=== PATIENT | male | born 1940 | race Caucasian/White ===

== ENCOUNTER 2019-03-25 06:52 | Day surgery (SDC) | payer MEDICARE, OTHER ==
[~2019-03-25] VITALS: Ht 175.3 cm; Wt 74.5 kg
[2019-03-25] VITALS (13 sets, daily range): BP systolic 103–170; BP diastolic 59–91
[~2019-03-25 06:52] MED LIST: ASPI-611 PO; ATOR-2 PO; ATRNS; CALC-212 PO; CALC-234 PO; CLIN60GE5 TP; CLOP75TA15 PO; FENT-90 TD; LOSA50TA3 PO; LUBI24CA5 PO; META-25 PO; METR60GE2 TP; NEBI10TA2 PO; NORCO10T PO; OMEG1CAP2 PO; ROPI1TAB2 PO; SYN0.088T PO; TERB250T4 PO; TEST60CR TD; one a day vitamin PO
[2019-03-25] MEDS ORDERED: normal saline 1000ml 1,000 ML IV PRN (07:10)
[2019-03-25] MEDS ORDERED: BIOT5000 PO (07:31)
[2019-03-25] MEDS ORDERED: AZEL137S4 BOTHNARES (07:31)
[2019-03-25] MEDS ORDERED: LINA145C PO (07:31)
[2019-03-25] MEDS ORDERED: LISI-600 PO (07:31)
[2019-03-25] MEDS ORDERED: CAT1P SUBD (07:31)
[2019-03-25] MEDS ORDERED: RANI150C4 PO (07:31)
[2019-03-25] MEDS ORDERED: ACET-2615 PO (07:34)
[2019-03-25] MEDS ORDERED: normal saline 1000ml 1,000 ML IV SCH ×2 (08:01→10:20)
[2019-03-25] MEDS ORDERED: heparin 1,000 UNITS/NS 500ml 500 ML ICATH ONE (08:05)
[2019-03-25] MEDS ORDERED: midazolam 2 mg/2 ml injection IV PRN (08:05)
[2019-03-25] MEDS ORDERED: fentaNYL/PF 50MCG/1 ML 2ML syringe IV PRN (08:05)
[2019-03-25] MEDS ORDERED: iohexol 300mg/ml 100ml inj. ONE (08:09)
[2019-03-25] MEDS ORDERED: LIDOcaine 1%/PF 5ML 10 MG/ML VIAL ONE (08:09)
[2019-03-25 08:10] LABS: BASOPHILS % (AUTO) 0.3 % (0-1); EOSINOPHILS # (AUTO) 0.1 X10'3 (0-0.9); HEMATOCRIT 46.5 % (42.0-52.0); HEMOGLOBIN 15.1 g/dl (14.0-17.9); LYMPHOCYTES # (AUTO) 1.5 X10'3 (1.1-4.8); LYMPHOCYTES % (AUTO) 21.1 % (21-51); MEAN CORPUSCULAR HEMOGLOBIN 30.3 PG (27.0-31.0); MEAN CORPUSCULAR HGB CONC 32.5 g/dL (33.0-36.5); MEAN CORPUSCULAR VOLUME 93.1 FL (78-98); MEAN PLATELET VOLUME 8.8 FL (7.4-10.4); MONOCYTES # (AUTO) 0.7 X10'3 (0-0.9); MONOCYTES % (AUTO) 9.9 % (2-12); NEUTROPHILS % (AUTO) 67.7 % (42-75); PLATELET COUNT 160 X10'3 (140-440); RED BLOOD COUNT 4.99 X10'6 (4.70-6.10); RED CELL DISTRIBUTION WIDTH 14.8 % (11.5-14.5); WHITE BLOOD COUNT 7.3 X10'3 (4.5-11.0)
[2019-03-25 08:14] LABS: ALBUMIN 4.2 G/DL (3.4-5.0); ANION GAP 10 (8-16); BLOOD UREA NITROGEN 38 MG/DL (7-18); BUN/CREATININE RATIO 18.4 (5.4-32.0); CALCIUM 10.5 MG/DL (8.5-10.1); CHLORIDE 106 MMOL/L (99-107); CREATININE 2.07 MG/DL (0.60-1.10); GLUCOSE 91 MG/DL (70-104); POTASSIUM 5.1 MMOL/L (3.5-5.1); SODIUM 141 MMOL/L (135-145); TOTAL CARBON DIOXIDE 24.8 MMOL/L (24-32); eGFR 31 ML/MIN
[2019-03-25] MEDS ORDERED: fentaNYL/PF 50MCG/1 ML 2ML syringe ONE ×2 (08:14→09:40)
[2019-03-25] MEDS ORDERED: heparin 1,000 UNITS/NS 500ml 500 ML ONE (08:14)
[2019-03-25] MEDS ORDERED: midazolam 2 mg/2 ml injection ONE ×2 (08:14→09:40)
== END 2019-03-25 16:45 | disposition home or self-care (01) ==
LOC: SSTAY O 06:52
PROVIDERS: ATTEND Radiology Diagnostic Radiology
DX: I70.212 Atherosclerosis of native arteries of extremities with intermittent claudication, left leg (principal); I10 Essential (primary) hypertension; E78.5 Hyperlipidemia, unspecified; J44.9 Chronic obstructive pulmonary disease, unspecified; Z85.51 Personal history of malignant neoplasm of bladder; Z95.828 Presence of other vascular implants and grafts; Z95.820 Peripheral vascular angioplasty status with implants and grafts; Z79.82 Long term (current) use of aspirin; Z79.890 Hormone replacement therapy; Z79.02 Long term (current) use of antithrombotics/antiplatelets; Z79.891 Long term (current) use of opiate analgesic; Z79.899 Other long term (current) drug therapy; Z88.5 Allergy status to narcotic agent; Z88.8 Allergy status to other drugs, medicaments and biological substances; Z87.891 Personal history of nicotine dependence; Z98.890 Other specified postprocedural states
CPT/HCPCS: 36415; 37224; 80048; 85025; 85610; 99152; 99153; C1725; J1644; J2001; J2250; J3010; J7030; Q9967; C1769; C1894

== ENCOUNTER 2019-07-29 06:36 | Day surgery (SDC) | payer MEDICARE, OTHER ==
[~2019-07-29] VITALS: Ht 175.3 cm; Wt 73.0 kg
[2019-07-29] VITALS (13 sets, daily range): BP systolic 120–179; BP diastolic 59–91
[~2019-07-29 06:36] MED LIST changes: +ACET-2615 PO; -ASPI-611 PO; +AZEL137S4 BOTHNARES; +BIOT5000 PO; +CAT1P SUBD; -CLIN60GE5 TP; -FENT-90 TD; +LINA145C PO; +LISI-600 PO; -LOSA50TA3 PO; -LUBI24CA5 PO; -NEBI10TA2 PO; +RANI150C4 PO
[2019-07-29] MEDS ORDERED: normal saline 1000ml 1,000 ML IV SCH ×2 (07:15→10:17)
[2019-07-29] MEDS ORDERED: LIDOcaine 1%/PF 5ML 10 MG/ML VIAL ONE (07:27)
[2019-07-29] MEDS ORDERED: iohexol 300mg/ml 100ml inj. ONE (07:28)
[2019-07-29 07:42] LABS: BASOPHILS % (AUTO) 0.6 % (0-1); EOSINOPHILS # (AUTO) 0.1 X10'3 (0-0.9); EOSINOPHILS % (AUTO) 2.3 % (0-6); HEMATOCRIT 48.9 % (42.0-52.0); HEMOGLOBIN 16.4 g/dl (14.0-17.9); LYMPHOCYTES # (AUTO) 2.4 X10'3 (1.1-4.8); LYMPHOCYTES % (AUTO) 38.2 % (21-51); MEAN CORPUSCULAR HEMOGLOBIN 31.5 PG (27.0-31.0); MEAN CORPUSCULAR HGB CONC 33.5 g/dL (33.0-36.5); MEAN CORPUSCULAR VOLUME 94.2 FL (78-98); MONOCYTES # (AUTO) 0.5 X10'3 (0-0.9); MONOCYTES % (AUTO) 7.4 % (2-12); NEUTROPHILS # (AUTO) 3.2 X10'3 (1.8-7.7); NEUTROPHILS % (AUTO) 51.5 % (42-75); PLATELET COUNT 176 X10'3 (140-440); RED BLOOD COUNT 5.19 X10'6 (4.70-6.10); RED CELL DISTRIBUTION WIDTH 13.4 % (11.5-14.5); WHITE BLOOD COUNT 6.2 X10'3 (4.5-11.0)
[2019-07-29 07:48] LABS: ALBUMIN 4.6 G/DL (3.4-5.0); ANION GAP 10 (8-16); BLOOD UREA NITROGEN 27 MG/DL (7-18); BUN/CREATININE RATIO 12.7 (5.4-32.0); CALCIUM 9.9 MG/DL (8.5-10.1); CHLORIDE 107 MMOL/L (99-107); CREATININE 2.12 MG/DL (0.60-1.10); GLUCOSE 83 MG/DL (70-104); POTASSIUM 4.5 MMOL/L (3.5-5.1); SODIUM 143 MMOL/L (135-145); TOTAL CARBON DIOXIDE 25.7 MMOL/L (24-32); eGFR 30 ML/MIN
[2019-07-29] MEDS ORDERED: heparin 1,000 UNITS/NS 500ml 500 ML ICATH ONE (08:15)
[2019-07-29] MEDS ORDERED: fentaNYL/PF 50MCG/1 ML 2ML syringe IV PRN (08:15)
[2019-07-29] MEDS ORDERED: LIDOcaine 1%/PF 5ML 10 MG/ML VIAL SQ ONE (08:15)
[2019-07-29] MEDS ORDERED: midazolam 2 mg/2 ml injection IV PRN (08:15)
[2019-07-29] MEDS ORDERED: [UNRECOGNIZED DRUG - OTHER] (08:18)
[2019-07-29] MEDS ORDERED: CLIN30GE2 TOP (08:18)
[2019-07-29] MEDS ORDERED: DIPH50CA3 PO (08:18)
[2019-07-29] MEDS ORDERED: DOCU-20 PO (08:18)
[2019-07-29] MEDS ORDERED: heparin 1,000 UNITS/NS 500ml 500 ML ONE (08:22)
[2019-07-29] MEDS ORDERED: fentaNYL/PF 50MCG/1 ML 2ML syringe ONE ×2 (08:22→09:18)
[2019-07-29] MEDS ORDERED: midazolam 2 mg/2 ml injection ONE ×2 (08:22→09:17)
== END 2019-07-29 16:00 | disposition home or self-care (01) ==
LOC: SSTAY O 06:36
PROVIDERS: ATTEND Radiology Diagnostic Radiology
DX: I70.212 Atherosclerosis of native arteries of extremities with intermittent claudication, left leg (principal); M19.90 Unspecified osteoarthritis, unspecified site; I12.9 Hypertensive chronic kidney disease with stage 1 through stage 4 chronic kidney disease, or unspecified chronic kidney disease; E78.5 Hyperlipidemia, unspecified; M81.0 Age-related osteoporosis without current pathological fracture; J44.9 Chronic obstructive pulmonary disease, unspecified; Z85.51 Personal history of malignant neoplasm of bladder; N18.2 Chronic kidney disease, stage 2 (mild); Z87.891 Personal history of nicotine dependence; Z72.89 Other problems related to lifestyle; Z88.5 Allergy status to narcotic agent; Z88.8 Allergy status to other drugs, medicaments and biological substances; Z79.01 Long term (current) use of anticoagulants; Z79.82 Long term (current) use of aspirin; Z79.899 Other long term (current) drug therapy
CPT/HCPCS: 36415; 37226; 80048; 85025; 85610; 99152; 99153; C1725; C1769; C1894; J1644; J2250; J3010; J7030; Q9967; C1876

== ENCOUNTER 2020-03-14 06:02 | Day surgery (SDC) | payer MEDICARE, OTHER ==
[2020-03-13 11:48] LABS: BASOPHILS % (AUTO) 0.6 % (0-1); EOSINOPHILS # (AUTO) 0.1 X10'3 (0-0.9); EOSINOPHILS % (AUTO) 2.5 % (0-6); HEMATOCRIT 45.5 % (42.0-52.0); HEMOGLOBIN 14.6 g/dl (14.0-17.9); LYMPHOCYTES # (AUTO) 1.4 X10'3 (1.1-4.8); LYMPHOCYTES % (AUTO) 28.2 % (21-51); MEAN CORPUSCULAR HEMOGLOBIN 31.4 PG (27.0-31.0); MEAN CORPUSCULAR HGB CONC 32.2 g/dL (33.0-36.5); MEAN CORPUSCULAR VOLUME 97.5 FL (78-98); MEAN PLATELET VOLUME 9.5 FL (7.4-10.4); MONOCYTES # (AUTO) 0.3 X10'3 (0-0.9); MONOCYTES % (AUTO) 6.9 % (2-12); NEUTROPHILS % (AUTO) 61.8 % (42-75); PLATELET COUNT 161 X10'3 (140-440); RED BLOOD COUNT 4.67 X10'6 (4.70-6.10); RED CELL DISTRIBUTION WIDTH 12.9 % (11.5-14.5); WHITE BLOOD COUNT 4.9 X10'3 (4.5-11.0)
[2020-03-13 11:58] LABS: ALBUMIN 3.8 G/DL (3.4-5.0); ANION GAP 7 (8-16); BLOOD UREA NITROGEN 41 MG/DL (7-18); BUN/CREATININE RATIO 20.6 (5.4-32.0); CALCIUM 10.1 MG/DL (8.5-10.1); CHLORIDE 108 MMOL/L (99-107); CREATININE 1.99 MG/DL (0.60-1.10); GLUCOSE 88 MG/DL (70-104); POTASSIUM 5.2 MMOL/L (3.5-5.1); SODIUM 142 MMOL/L (135-145); TOTAL CARBON DIOXIDE 27.4 MMOL/L (24-32); eGFR 33 ML/MIN
[2020-03-13 12:01] LABS: PARTIAL THROMBOPLASTIN TIME 28 SECONDS (22-32)
[~2020-03-14] VITALS: Ht 172.7 cm; Wt 70.5 kg
[2020-03-14] VITALS (13 sets, daily range): BP systolic 82–156; BP diastolic 48–82
[~2020-03-14 06:02] MED LIST changes: -CALC-212 PO; -CAT1P SUBD; +CLIN30GE2 TOP; +DIPH50CA3 PO; +DOCU-20 PO; -LINA145C PO; -METR60GE2 TP; +[UNRECOGNIZED DRUG - OTHER]
[2020-03-14] MEDS ORDERED: normal saline 1000ml 1,000 ML IV SCH (06:30)
[2020-03-14] MEDS ORDERED: CYCL-1 PO (06:37)
[2020-03-14] MEDS ORDERED: CLON1PAT15 TOP (06:37)
[2020-03-14] MEDS ORDERED: CALC-336 PO (06:37)
[2020-03-14] MEDS ORDERED: FLUT15.845 (06:37)
[2020-03-14] MEDS ORDERED: PANT-47 PO (06:37)
[2020-03-14] MEDS ORDERED: cefazolin/dext.iso 2gm/100ml 100 ML IV ONE (06:45)
[2020-03-14] MEDS ORDERED: GUAI600T45 PO (07:14)
[2020-03-14] MEDS ORDERED: fentaNYL/PF 50MCG/1 ML 2ML syringe ONE (07:41)
[2020-03-14] MEDS ORDERED: midazolam 2 mg/2 ml injection ONE (07:41)
[2020-03-14] MEDS ORDERED: LIDOcaine 1% W/epiNEPHrine 1:100,000 20ml vial ONE ×2 (07:41→08:46)
--- NOTE | 2020-03-14 07:45 | NUR ---
Pt resting in bed, Bobo RN at bedside to take patient to procedure.
[2020-03-14] MEDS ORDERED: ceFAZolin 1000mg inj ONE (08:13)
[2020-03-14] MEDS ORDERED: diphenhydrAMINE 50 mg/ml inj ONE (08:32)
--- NOTE | 2020-03-14 09:42 | NUR ---
pt back in room. Denies pain. DRSG CD&I VS stable as charted. Will continue to monitor.
[2020-03-14] MEDS ORDERED: HYDROcodone/acetaminophen 5mg/325mg tablet PO PRN ×2 (10:00→10:25)
[2020-03-14] MEDS ORDERED: HYDROcodone/acetaminophen 10/325mg tab PO PRN ×2 (10:00→10:25)
--- NOTE | 2020-03-14 10:41 | NUR ---
contacted pt's son. Discussed discharge time per patient request. Son states he will be here by [id number].
--- NOTE | 2020-03-14 10:55 | NUR ---
pt going for xray.
[2020-03-14] MEDS ORDERED: vancomycin/NS 1 GM ADD-VANTAGE 250 ML IV ONE (11:00)
[2020-03-14] MEDS ORDERED: vancomycin/NS 1 GM ADD-VANTAGE 250 ML X 1 DOSE IV ONE (11:00)
--- NOTE | 2020-03-14 11:42 | NUR ---
pt BP 82/48, pt denies sob, denies dizziness, denies cp. pt states, "That happens a lot to me when I'm at home and check it, I just drink a big glass of water and it goes up." NS bolus administered. Will continue to monitor.
--- NOTE | 2020-03-14 12:10 | NUR ---
Problems reprioritized. Patient report given, questions answered & plan of care reviewed with Sonia RN.
== END 2020-03-14 15:00 | disposition home or self-care (01) ==
LOC: SSTAY O 06:02 → MED 3N 06:02 → SSTAY O 15:00
PROVIDERS: ATTEND Internal Medicine Cardiovascular Disease
DX: I49.5 Sick sinus syndrome (principal); I25.10 Atherosclerotic heart disease of native coronary artery without angina pectoris; E78.5 Hyperlipidemia, unspecified; Z98.890 Other specified postprocedural states; Z79.01 Long term (current) use of anticoagulants
CPT/HCPCS: 33208; 33286; 36415; 71046; 80048; 85025; 85610; 85730; 93005; 99152; 99153; C1785; C1894; C1898; J0690; J1200; J2250; J3010; J3370; J7030; A4565; A4620; A6258; A6449

== ENCOUNTER 2021-01-23 08:23 | Day surgery (SDC) | payer MEDICARE, OTHER ==
[2021-01-23] VITALS (13 sets, daily range): BP systolic 104–143; BP diastolic 48–86
[~2021-01-23] VITALS: Ht 172.7 cm; Wt 68.5 kg
[~2021-01-23 08:23] MED LIST changes: -AZEL137S4 BOTHNARES; -BIOT5000 PO; +CALC-336 PO; +CLON1PAT15 TOP; +CYCL-1 PO; -DIPH50CA3 PO; -DOCU-20 PO; +DOCU-348 PO; +FLUT15.845; +GUAI600T45 PO; -LISI-600 PO; +LISI20TA28 PO; -META-25 PO; +PANT-47 PO; -RANI150C4 PO; -TERB250T4 PO
[2021-01-23] MEDS ORDERED: normal saline 1000ml 1,000 ML IV SCH (08:45)
[2021-01-23] MEDS ORDERED: AMLO5TAB16 PO (09:02)
[2021-01-23] MEDS ORDERED: POVI88.72 (09:02)
[2021-01-23] MEDS ORDERED: NINT100C PO (09:02)
[2021-01-23] MEDS ORDERED: POLY119P2 PO (09:02)
[2021-01-23] MEDS ORDERED: SIME80TA15 PO (09:02)
[2021-01-23] MEDS ORDERED: AZEL137S4 BOTHNARES (09:02)
[2021-01-23] MEDS ORDERED: DICL100G30 TD (09:02)
[2021-01-23] MEDS ORDERED: ONDA8TAB13 SL (09:02)
[2021-01-23] MEDS ORDERED: DICY20TA17 PO (09:02)
[2021-01-23] MEDS ORDERED: FLO0.4C PO (09:02)
[2021-01-23] MEDS ORDERED: PRE5T PO (09:02)
[2021-01-23] MEDS ORDERED: midazolam 1 mg/ML 2ml injection ONE (10:06)
[2021-01-23] MEDS ORDERED: fentaNYL/PF 50MCG/1 ML 2ML syringe ONE (10:07)
== END 2021-01-23 13:40 | disposition home or self-care (01) ==
LOC: SSTAY O 08:23
PROVIDERS: ATTEND Radiology Vascular & Interventional Radiology
DX: R91.8 Other nonspecific abnormal finding of lung field (principal); C34.12 Malignant neoplasm of upper lobe, left bronchus or lung; I10 Essential (primary) hypertension; J43.9 Emphysema, unspecified; Z86.73 Personal history of transient ischemic attack (TIA), and cerebral infarction without residual deficits; Z85.51 Personal history of malignant neoplasm of bladder; Z89.429 Acquired absence of other toe(s), unspecified side; Z87.891 Personal history of nicotine dependence; Z88.8 Allergy status to other drugs, medicaments and biological substances; Z88.5 Allergy status to narcotic agent; Z88.1 Allergy status to other antibiotic agents; Z79.899 Other long term (current) drug therapy; Z79.2 Long term (current) use of antibiotics; Z20.822 Contact with and (suspected) exposure to COVID-19; Z79.01 Long term (current) use of anticoagulants
CPT/HCPCS: 32408; 36415; 71045; 87635; 88341; 88342; 99152; 99153; C2613; J2250; J3010; J7030; 77012; 88305